=== PATIENT | male | born 2000 | race Caucasian/White ===

== ENCOUNTER 2023-01-07 15:19 | Emergency (ER) | payer SELFPAY ==
[~2023-01-07] VITALS: Ht 185 cm; Wt 95.0 kg
--- NOTE | 2023-01-07 15:40 | ED Lower Extremity ---
General Chief Complaint: Lower Extremity Stated Complaint: RIGHT FOOT PAIN Nursing Triage Note: Patient presented to the ER today with complaints of right foot pain. Patient advised that he may have a fracture in his foot. He advised that he woke up and had pain in it today. Source: patient Exam Limitations: no limitations History of Present Illness Date Seen by Provider: Jan 07, 2023 Time Seen by Provider: 15:38 Initial Comments Patient is a 22-year-old male who presents ED with right lateral foot pain. Patient woke up with pain this morning. Noted some swelling to the right lateral foot. Patient states he was intoxicated last night and cannot recall any specific injury. Reports pain with walking or any movement of his right sided toes. Denies taking thing for pain. No history of previous injury or fracture. Patient states he is having difficulty walking. Allergies and Home Medications Allergies Coded Allergies: No Known Drug Allergies (Unverified , 01/07/23) Patient Home Medication List Home Medication List Reviewed: Yes Review of Systems Constitutional: No chills, No diaphoresis, No malaise EENTM: No blurred vision, No double vision Respiratory: No cough, No dyspnea on exertion Cardiovascular: No chest pain Gastrointestinal: No abdominal pain, No diarrhea, No nausea, No vomiting Genitourinary: No decreased output, No discharge Musculoskeletal: No back pain; joint pain, joint swelling Skin: No change in color, No change in hair/nails Psychiatric/Neurological: Denies Anxiety, Denies Depressed All Other Systems Reviewed Negative Unless Noted: Yes Past [id number]-[id number] Hx Patient Social History Tobacco Use?: No Substance use?: No Alcohol Use?: No Past Medical History Surgery/Hospitalization HX: shoulder, knee x 2 Physical Exam Vital Signs Vital Signs - First Documented 01/07/23 15:27 Pulse 93 Resp 18 B/P (MAP) 142/83 (102) Pulse Ox 97 O2 Delivery Room Air Capillary Refill : Less Than 3 Seconds Height, Weight, BMI Height: '" Weight: lbs. oz. kg; 27.00 BMI Method: General Appearance: WD/WN, no apparent distress HEENT: PERRL/EOMI, normal ENT inspection, TMs normal Neck: non-tender, full range of motion, supple Cardiovascular: regular rate, rhythm, no edema, no gallop, no JVD Respiratory: chest non-tender, lungs clear, normal breath sounds, no respiratory distress, no accessory muscle use Gastrointestinal: normal bowel sounds, non tender, soft, no organomegaly Back: normal inspection, no CVA tenderness, no vertebral tenderness Hips: bilateral hip non-tender, bilateral hip normal inspection, bilateral hip normal range of motion Knees: bilateral knee non-tender, bilateral knee normal inspection, bilateral knee normal range of motion Ankles: bilateral ankle non-tender, bilateral ankle normal inspection, bilateral ankle no evidence of injury Feet: right foot pain (Tenderness to right fifth metatarsal), right foot soft tissue tenderness, right foot swelling Neurologic/Psychiatric: entrepreneur II-XII nml as tested, no motor/sensory deficits, alert, normal mood/affect Skin: normal color Procedures/Interventions Splinting and Joint Reduction : Pre-Proc Neuro Vasc Exam: normal Post-Proc Neuro Vasc Exam: normal Pre-Procedure NV Exam: Yes Progress Posterior short leg splint Ortho-Glass. Neurovascularly pre and post splint. Prakash wrap: Yes Hand-Made Type: orthoglass Splint Application: Short Leg Progress/Results/Core Measures Results/Orders My Orders Orders - ZULY HOLLAND Foot, Right, 3 View (01/07/23 15:36) Crutches (01/07/23 15:52) Vital Signs/I&O 01/07/23 15:27 Pulse 93 Resp 18 B/P (MAP) 142/83 (102) Pulse Ox 97 O2 Delivery Room Air Blood Pressure Mean: 102 Departure Communication (PCP) Patient with right lateral foot tenderness along the fifth metatarsal. Swelling noted. Recommended x-ray to rule out acute fracture. X-ray shows a nondisplaced proximal fifth metatarsal fracture read by myself. Radiologist agreed. Patient refused anything for pain. Due to the location and type of fracture patient was placed in a short leg posterior splint and provided crutches. Nonweightbearing at this time. Orthopedic follow-up in 7 to 10 days. Will discharge with pain medication. Provided return precautions with patient. Elevate, Tylenol ibuprofen at home to help with swelling and pain and will provide hydrocodone as needed. Impression Primary Impression: Fracture of foot Disposition: 01 HOME, SELF-CARE Condition: Stable Departure-Patient Inst. Decision time for Depature: 16:14 Referrals: NO,LOCAL PHYSICIAN (PCP) Primary Care Physician SANDIP BERGMAN MD Patient Instructions: Foot Fracture ED Scripts Hydrocodone/Acetaminophen (Hydrocodone-Acetamin 5-325 mg) 5 Mg-325 Mg Tablet 1 TAB PO Q4H PRN for PAIN-MODERATE (5-7), #8 TAB Prov: ZULY HOLLAND 01/07/23 ZULY HOLLAND Jan 07, 2023 15:40
--- NOTE | 2023-01-07 15:49 | Diagnostic Imaging Report ---
INDICATION: Lateral right foot pain. TIME OF EXAM: 3:29 PM. EXAMINATION: Three views of the right foot were obtained. FINDINGS: There is a fracture in the proximal 5th metatarsal. No displacement or angulation is seen. Remaining metatarsals are intact. Phalanges are intact. Midfoot and hindfoot are unremarkable. IMPRESSION: Nondisplaced proximal 5th metatarsal fracture. Dictated by: Dictated on workstation # [id number]
[2023-01-07] MEDS ORDERED: ACHD5005 PO (16:15)
[2023-01-07 16:49] VITALS: BP 142/83
== END 2023-01-07 16:50 | disposition home or self-care (01) ==
LOC: EDUNIT# 15:19 → ER 15:21
DX: S92.354A Nondisplaced fracture of fifth metatarsal bone, right foot, initial encounter for closed fracture (principal); X58.XXXA Exposure to other specified factors, initial encounter
CPT/HCPCS: 29515; 73630

== ENCOUNTER → 2023-01-17 | Outpatient (CLI) | payer SELFPAY ==
[~2023-01-17] MED LIST: ACHD5005 PO
--- NOTE | 2023-01-17 13:04 | Diagnostic Imaging Report ---
INDICATION: Pain since Sunday. EXAMINATIOn: Right foot 01/17/2023 COMPARISON: 01/07/2023. FINDINGS: 3 views of the foot. Again seen is a nondisplaced fracture along the mid to proximal aspect of the 5th metatarsal. The osseous structures appear stable from previous imaging. No significant interval callus formation is appreciated. No new fractures identified. IMPRESSION: 1. Stable appearing 5th metatarsal fracture. Dictated by: Dictated on workstation # [id number]
== END ==
LOC: ORTHO 10:45
PROVIDERS: ATTEND Orthopaedic Surgery
DX: S92.351D Displaced fracture of fifth metatarsal bone, right foot, subsequent encounter for fracture with routine healing (principal); X58.XXXD Exposure to other specified factors, subsequent encounter
CPT/HCPCS: 73630; G0463; 99202

== ENCOUNTER → 2023-02-14 | Outpatient (CLI) | payer SELFPAY ==
--- NOTE | 2023-02-14 10:23 | Diagnostic Imaging Report ---
INDICATION: Right foot injury. Time of Exam: 9:48 AM Correlation is made with the prior radiograph of 01/17/2023. Lucency through the proximal 5th metatarsal is noted consistent with residual fracture line. No displacement is seen. No other fractures are identified. IMPRESSION: Proximal 5th metatarsal fracture. Fracture line remains clearly visible. Alignment is anatomic. Dictated by: Dictated on workstation # [id number]
== END ==
LOC: ORTHO 09:33
PROVIDERS: ATTEND Orthopaedic Surgery
DX: S92.354A Nondisplaced fracture of fifth metatarsal bone, right foot, initial encounter for closed fracture (principal); X58.XXXA Exposure to other specified factors, initial encounter
CPT/HCPCS: 73630; G0463; 99213

== ENCOUNTER → 2023-03-15 | Outpatient (CLI) | payer SELFPAY ==
--- NOTE | 2023-03-15 11:28 | Diagnostic Imaging Report ---
INDICATION: Right 5th metatarsal fracture. AP, oblique and lateral views of the right foot are obtained. There is mild sclerosis developing about the nondisplaced 5th metatarsal shaft fracture. No new fracture or malalignment is identified. IMPRESSION: There is sclerosis about the visualized transverse fracture through proximal 5th metatarsal likely related to partial healing. Dictated by: Dictated on workstation # [id number]
== END ==
LOC: ORTHO 10:29
PROVIDERS: ATTEND Orthopaedic Surgery
DX: S92.354D Nondisplaced fracture of fifth metatarsal bone, right foot, subsequent encounter for fracture with routine healing (principal); X58.XXXD Exposure to other specified factors, subsequent encounter
CPT/HCPCS: 73630; G0463; 99213

== ENCOUNTER → 2023-05-02 | Outpatient (CLI) | payer OTHER ==
--- NOTE | 2023-05-02 12:42 | Diagnostic Imaging Report ---
INDICATION: Follow-up fracture. EXAMINATION: Right foot 05/02/2023. COMPARISON: 03/15/2023 FINDINGS: 3 views of the foot Again seen is a transverse fracture through the proximal one 3rd of the 5th metatarsal. Alignment is stable. Mild increased sclerosis is noted, but there is incomplete healing at this time. No new fractures identified. IMPRESSION: 1. Early changes of healing about the 5th metatarsal fracture. Dictated by: Dictated on workstation # [id number]
== END ==
LOC: ORTHO 09:01
PROVIDERS: ATTEND Orthopaedic Surgery
DX: S92.351D Displaced fracture of fifth metatarsal bone, right foot, subsequent encounter for fracture with routine healing (principal); X58.XXXD Exposure to other specified factors, subsequent encounter
CPT/HCPCS: 73630; G0463; 99213

== ENCOUNTER → 2023-05-15 | Outpatient (CLI) | payer OTHER ==
--- NOTE | 2023-05-15 10:40 | Diagnostic Imaging Report ---
INDICATION: Right foot pain AP and oblique and lateral views of the right foot are obtained and compared to 05/02/2023. Fractures of proximal shaft of the 5th metatarsal is again noted, there appears to be slight widening of the fracture site compared to the prior study. Remaining structures are intact. Joint spaces are unremarkable. IMPRESSION: Fracture of 5th metatarsal shaft is again noted proximally, with slight widening of the fracture site compared to the prior study but no change in alignment. Continued follow-up is recommended. Dictated by: Dictated on workstation # [id number]
== END ==
LOC: ORTHO 08:28
PROVIDERS: ATTEND Orthopaedic Surgery
DX: S92.354D Nondisplaced fracture of fifth metatarsal bone, right foot, subsequent encounter for fracture with routine healing (principal); X58.XXXD Exposure to other specified factors, subsequent encounter
CPT/HCPCS: 73630; G0463; 99213